=== PATIENT | female | born 1960 | race American Indian/Alaskan Native ===

== ENCOUNTER 2018-01-05 07:34 | Emergency (ER) | payer MEDICAID ==
[2018-01-05 07:35] VITALS: BMI 23.4
--- NOTE | 2018-01-05 07:53 | C.PDOC ---
History Of Present Illness 57-year-old female, presents to the emergency department, states she noticed something in her mid back, that feels like a "wart." Patient denies any nausea/ vomiting, fever, chills, chest pain or shortness of breath or any other associated symptoms. No other complaints at this time. Time Seen by Provider: 01/05/18 07:39 Chief Complaint (Nursing): Abnormal Skin Integrity History Per: Patient History/Exam Limitations: no limitations Current Symptoms Are (Timing): Still Present Past Medical History Reviewed: Historical Data, Nursing Documentation, Vital Signs Vital Signs: Last Vital Signs Temp 98.5 F 01/05/18 08:12 Pulse 84 01/05/18 08:12 Resp 18 01/05/18 08:12 BP 134/78 01/05/18 08:12 Pulse Ox 97 01/05/18 08:12 - Medical History PMH: Anxiety, Arthritis, Colonic Polyps, Depression, HTN, Rheumatoid Arthritis Surgical History: Endoscopy - [facility] Procedures ENDO RECTUM POLYPECTOMY (03/02/15) ENDOSCOPIC BIOPSY OF RECTUM (03/02/15) Family History: States: No Known Family Hx - Social History Hx Tobacco Use: No Hx Alcohol Use: No Hx Substance Use: No - Immunization History Hx Tetanus Toxoid Vaccination: No Hx Influenza Vaccination: Yes Hx Pneumococcal Vaccination: No Review Of Systems Constitutional: Negative for: Fever, Chills Cardiovascular: Negative for: Chest Pain Respiratory: Negative for: Shortness of Breath Gastrointestinal: Negative for: Nausea, Vomiting Musculoskeletal: Negative for: Back Pain Neurological: Negative for: Weakness, Headache, Dizziness Physical Exam - Physical Exam Appears: Non-toxic, No Acute Distress Skin: Warm, Dry, Other (tick on back.) Head: Atraumatic Eye(s): bilateral: Normal Inspection, PERRL Nose: Normal Oral Mucosa: Moist Lips: Normal Appearing Neck: Normal ROM Respiratory: No Accessory Muscle Use (no acute respiratory distress) Extremity: Normal ROM, No Deformity, No Swelling Neurological/Psych: Oriented x3, Normal Speech ED Course And Treatment O2 Sat by Pulse Oximetry: 98 (RA) Pulse Ox Interpretation: Normal Progress Note: Pt treated with Doxycyclin, tick removed, sent to pathology. Pt will be discharged for outpt f.u with clinic Disposition Counseled Patient/Family Regarding: Diagnosis, Need For Followup, Rx Given - Disposition Referrals: Ascencion Lee [Student Nurse] - Disposition: HOME/ ROUTINE Disposition Time: 07:55 Condition: STABLE Additional Instructions: FOLLOW UP WITH YOUR DOCTOR/CLINIC IN 1-2 DAYS USE MEDICATION UNTIL FINISHED RETURN TO ER IF YOU HAVE ANY CONCERNING SYMPTOMS Prescriptions: Doxycycline Monohydrate 100 mg PO BID #28 tablet Instructions: Insect Bites and Stings (DC) Forms: [employer] ([place]) Print Language: DANISH - Clinical Impression Clinical Impression: Tick bite of back - Scribe Statement The provider has reviewed the documentation as recorded by the Scribe (Miladys [email or web address]) All medical record entries made by the Scribe were at my direction and personally dictated by me. I have reviewed the chart and agree that the record accurately reflects my personal performance of the history, physical exam, medical decision making, and the department course for this patient. I have also personally directed, reviewed, and agree with the discharge instructions and disposition.
[2018-01-05 09:53] VITALS: BP 134/78; PULSE 84; RESP 18; TEMP 98.5
[2018-01-05 10:33] VITALS: O2SAT 98
== END 2018-01-05 08:13 | disposition home or self-care (01) ==
LOC: C.ER 07:34
DX: S20.469A Insect bite (nonvenomous) of unspecified back wall of thorax, initial encounter (principal); W57.XXXA Bitten or stung by nonvenomous insect and other nonvenomous arthropods, initial encounter; I10 Essential (primary) hypertension; M06.9 Rheumatoid arthritis, unspecified

== ENCOUNTER 2018-12-02 10:56 | Outpatient (CLI) | payer MEDICAID | END 2018-12-02 10:57 | disposition home or self-care (01) | LOC: C.MAMMO 10:56 | DX: Z12.31 Encounter for screening mammogram for malignant neoplasm of breast (principal) ==